=== PATIENT | female | born 1960 | race Caucasian/White ===

== ENCOUNTER 2016-10-12 13:47 | Emergency (ER) | payer MEDICAID, OTHER ==
[~2016-10-12] VITALS: Ht 167.6 cm; Wt 64.0 kg
[2016-10-12 13:48] VITALS: BP 111/65; PULSE 80; RESP 15; TEMP 98.2; O2SAT 98
--- NOTE | 2016-10-12 14:09 | PD ---
HPI Chief Complaint: Psychiatric Symptoms Time Seen by Provider: 14:08 Travel History International Travel<30 days: No Contact w/Intl Traveler<30days: No Traveled to known affect area: No Data Data Last Documented VS Vital Signs Date Time Temp Pulse Resp B/P Pulse Ox O2 Delivery O2 Flow Rate FiO2 10/12/16 13:48 98.2 80 15 111/65 98 Adalberto English Oct 12, 2016 14:09
--- NOTE | 2016-10-12 14:36 | PD ---
History of Present Illness Chief Complaint: Psychiatric Symptoms Time Seen by Provider: 14:27 Travel History International Travel<30 Days: No Contact w/Intl Traveler<30days: No Known affected area: No Legal Status Legal Status: Mena Act Mena Act Signed By: History of Present Illness: This is a 55-year-old female who was Mena acted for allegedly making a suicidal comment while she was drinking wine and likely intoxicated last night. She was taken to [facility] where she was under a Mena act and eventually transported to this facility. Upon interview, the patient is calm and pleasant and cooperative. She is not suicidal or homicidal or psychotic. Her cognition is intact and she is verbally vida for safety. She feels embarrassed that she may have made a suicidal comment while intoxicated last night but states she has many reasons to live. Her son, youngest, is entering the armed services and she feels she may have said something like how will she live when he leaves home. At this point the patient is competent to make medical decisions and this. Physician feels she does not meet criteria under the Mena act and she does not meet criteria for inpatient psychiatric hospitalization. PFSH Past Medical History Medical History: Denies Significant Hx Psychiatric History Psychiatric History Hx Psychiatric Treatment: Denies Social History Hx Alcohol Use: Yes Hx Tobacco Use: No Hx Substance Use: No Substance Use Type: Alcohol Hx of Substance Use Treatment: No Review of Systems ROS Limitations: Clinical Condition Except as stated in HPI: all other systems reviewed are Neg Exam Exam Limitations: Clinical Condition Alert: Yes [place]: Person, Place, Date, Situation Mood: Calm Affect: Euthymic Speech: Clear, Logical Eye Contact: Normal Memory Intact: Immediate, Recent, Remote Insight/Judgement Adequate except regarding alcohol use. MDM Medical Decision Making Medical Record Reviewed: Yes Assessment/Plan Patient recommended to stop drinking alcohol. As stated previously, she does not meet criteria for Mena act or inpatient psychiatric hospitalization. Mena act lifted and patient to go home. However, this physician recommended she stop drinking alcohol or seek assistance from AA. Results Vital Signs Date Time Temp Pulse Resp B/P Pulse Ox O2 Delivery O2 Flow Rate FiO2 10/12/16 13:48 98.2 80 15 111/65 98 Diagnosis Primary Impression: Alcohol abuse Dong Vasquez MD Oct 12, 2016 14:36
[2016-10-12 14:38] VITALS: BP 116/71; RESP 18; TEMP 98
[2016-10-12] MEDS ORDERED: ATOR20TA15 PO (15:02)
[2016-10-12] MEDS ORDERED: SENNA (15:02)
[2016-10-12] MEDS ORDERED: OXYC15TA PO (15:02)
[2016-10-12] MEDS ORDERED: LISI2.5T3 PO (15:02)
[2016-10-12] MEDS ORDERED: ASPI81CH CHEW (15:02)
[2016-10-12] MEDS ORDERED: LEVE500 PO (15:02)
[2016-10-12] MEDS ORDERED: CARV3.12 PO (15:02)
[2016-10-12] MEDS ORDERED: MELO-1 PO (15:02)
[2016-10-12] MEDS ORDERED: XANA1TAB2 PO (15:02)
[2016-10-12] MEDS ORDERED: DOCUSATE (15:02)
[2016-10-12 15:03] VITALS: PULSE 76; RESP 17
== END 2016-10-12 15:43 | disposition home or self-care (01) ==
LOC: NEPC 13:47
DX: F10.10 Alcohol abuse, uncomplicated (principal)
CPT/HCPCS: 99283